=== PATIENT | female | born 1955 | race Caucasian/White ===

== ENCOUNTER → 2017-05-10 | Outpatient (CLI) | payer OTHER | LOC: CIMAGING 07:10 | PROVIDERS: ATTEND Family Medicine | DX: R10.31 Right lower quadrant pain (principal); R93.5 Abnormal findings on diagnostic imaging of other abdominal regions, including retroperitoneum; Z90.710 Acquired absence of both cervix and uterus | CPT/HCPCS: 76700-PO; 76856-PO ==

== ENCOUNTER → 2017-05-21 | Outpatient (CLI) | payer OTHER ==
[~2017-05-21] MED LIST: IOPAMIDOL (ISOVUE-300) 100 ML BTL ONE
== END ==
LOC: CIMAGING 14:19
PROVIDERS: ATTEND Family Medicine
DX: R18.8 Other ascites (principal); K63.9 Disease of intestine, unspecified; Z90.710 Acquired absence of both cervix and uterus
CPT/HCPCS: 74177-PO; Q9967